=== PATIENT | female | born 1955 | race Caucasian/White ===

== ENCOUNTER 2017-02-13 00:08 | Day surgery (SDC) | payer OTHER ==
[2017-02-13] VITALS (10 sets, daily range): BP systolic 102–147; BP diastolic 55–90; PULSE 67–80; RESP 11–24; O2SAT 97–100
[~2017-02-13] VITALS: Ht 160 cm; Wt 119.0 kg
[~2017-02-13 00:08] MED LIST: CALC-714 PO; CHOL500011 PO; FIBE1TAB4 PO; LACT1CAP75 PO; LISI-571 PO; SELE200T11 PO; THYR15TA PO; TORS5TAB5 PO; [UNRECOGNIZED DRUG - CODE] MC
[2017-02-13] MEDS ORDERED: 0.9% Sodium Chloride 1,000 ML IV SCH (08:50)
[2017-02-13] MEDS ORDERED: Sodium Chloride LOK Flush 10 mL Syringe IVFLUSH PRN (08:55)
[2017-02-13 10:13] LABS: BASOPHILS % (AUTO) 0.8 % (0-3); MONOCYTES % (AUTO) 6.7 % (4-12); Mean Corpuscular Hemoglobin 31.1 pg (27.0-35.0); Mean Corpuscular Volume 90.3 fL (81-100); NEUTROPHILS % (AUTO) 57.2 % (40-74); Platelet Count 290 bil/L (150-400)
[2017-02-13] MEDS ORDERED: ASCO100089 PO (10:17)
[2017-02-13] MEDS ORDERED: 0.9% Sodium Chloride 1,000 ML IV ONE (10:20)
[2017-02-13 10:27] LABS: INR 0.94 ratio
[2017-02-13] MEDS ORDERED: Heparin 1,000 Units/500 mL NS Premix IV ONE (10:33)
[2017-02-13] MEDS ORDERED: Heparin 5,000 Units/500 mL NS Premix IV ONE (10:34)
[2017-02-13] MEDS ORDERED: fentaNYL-PF 50 mCg/mL 2 mL Inj ONE (11:41)
[2017-02-13] MEDS ORDERED: Bupivacaine-MPF 0.5% 30 mL Inj ONE (11:59)
[2017-02-13] MEDS ORDERED: Atropine 1 mg/10 mL (Code) Syringe ONE (12:06)
[2017-02-13] MEDS ORDERED: 0.9% Sodium Chloride 1,000 ML IV PRN (12:57)
[2017-02-13] MEDS ORDERED: 0.9% Sodium Chloride 250 ML IV PRN (12:57)
[2017-02-13] MEDS ORDERED: Ondansetron 2 mg/mL 2 mL Inj IVPUSH PRN (13:00)
[2017-02-13] MEDS ORDERED: HYDROcodone-APAP 5-325 mg Tablet PO PRN (13:00)
[2017-02-13] MEDS ORDERED: Atropine 1 mg/10 mL (Code) Syringe IVPUSH PRN (13:00)
--- NOTE | 2017-02-13 15:40 | NUR ---
Discharge instructions reviewed with patient and spouse.Right groin stable after ambulating to bathroom..Pt waiting on Dr Cornell to see her so she can leave.
--- NOTE | 2017-02-13 21:18 | CS94 ---
[address] [address] DIAGNOSTIC CARDIAC CATHETERIZATION PATIENT: COLLIN MASON : 1955 MR#: [id number] ADMIT: 02/13/2017 JOB ID: [id number] SERVICE DATE: 02/13/2017 PROCEDURE: 1. Right heart catheterization. 2. Retrograde left heart catheterization. 3. Selective left and right coronary angiography. 4. Left ventricular cineangiography. 5. Right groin angiography. PREOPERATIVE EVALUATION: Severe symptomatic tricuspid regurgitation. CONSENT: The patient was explained the risks, benefits, and alternatives of the procedure. Informed signed consent was obtained and placed in the chart. PROCEDURE: The patient was brought to the cath laboratory and placed on the cath table. Both groins were prepped and draped in the usual sterile manner. Using a modified Seldinger technique, a 6-Portuguese arterial sheath was placed in the right femoral artery. A 7-Portuguese venous sheath was placed in the right femoral vein. A [place]-Ayan catheter was advanced under direct fluoroscopy into the right ventricle. Several attempts were made to advance the catheter into the pulmonary artery. However, because of the severe tricuspid regurgitation, the catheter could not be advanced further. Therefore FR4 catheter was placed in the right ventricular outflow tract. An SV-5 wire was advanced through the right catheter into the left pulmonary artery. The catheter was withdrawn and subsequently [place]-Ayan catheter was introduced over the guidewire into the left pulmonary artery. Subsequently, left pulmonary artery wedge pressures, oxygen saturation. pulmonary artery pressures, as well as oxygen saturations were obtained. Cardiac output by thermodilution method was obtained as well. Subsequently, right heart oxygen saturations and pressures were obtained and right atrial pressures as well as oxygen saturations were obtained. The hemodynamics into the IVC was obtained as well. After the completion of the right heart catheterization the catheter was withdrawn. The left heart catheterization was performed with FR4 catheter. The catheter tip was engaged into the left main coronary artery and multiple views of left coronary artery were obtained in multiple projections. FR4 catheter was used to engage the right coronary artery. Multiple views of the right coronary artery were obtained in multiple projections. A pigtail catheter was advanced over the guidewire into the left ventricle. Left ventricular hemodynamics were obtained. The left ventricular cineangiography was performed, standard right anterior oblique view with 10 cc with a total of 30 cc injected. The total fluoro time was 8.6 minutes and total contrast used 70 cc. The left side hemodynamics: The left ventricular end-diastolic pressure was 13 mmHg. The LV pressure was 145/2. The aortic pressure was measured at 145/74 with a mean of 104. CORONARY ANGIOGRAPHY: The total fluoro time was 8.6 minutes and total contrast used was 70 cc. The left main coronary artery is angiographically normal. It bifurcates into left anterior descending artery and left circumflex coronary artery. The left anterior descending artery is angiographically normal. The left circumflex coronary artery is angiographically normal. The right coronary artery is dominant and is angiographically normal. The right heart hemodynamics. The inferior vena cava hemodynamics demonstrates reversal of flow. The pressures were measured at 8 mmHg (elevated). The right atrial pressure was 16/12 with a mean of 8 mmHg. The pulmonary capillary wedge pressure was 12 mmHg with an A-wave of 16 and V-wave of 14. The PA pressure was 34/15 with a mean of 22 mmHg. The RV pressure was 27/1 with a mean of 11 mmHg. The oxygen saturation, the right atrial oxygen saturation was 71%, right ventricle 70%, and PA was 72%. The pulmonary capillary occlusive oxygen saturation was 94%. The aortic saturation was 97%. Cardiac output, thermodilution method, 6.14 L/minute with a cardiac index of 2.82. Cardiac output by Mady method 7.02 with a cardiac index of 3.22. The transpulmonary gradient was less than and pulmonary vascular resistance was less than 2 Ramírez unit. LEFT VENTRICULAR CINEANGIOGRAPHY: The left ventricular overall systolic function is normal. Mild pulmonary regurgitation was noted based on Mayer criteria. IMPRESSION: 1. Angiographically normal coronaries. 2. Normal left ventricular systolic function. 3. Right heart hemodynamics demonstrate normal pulmonary capillary wedge pressures. 4. Normal pulmonary vascular resistance. 5. Mild right ventricular systolic dysfunction with the right ventricular end-diastolic pressure of 11 mmHg. 6. The right atrial pressure to pulmonary capillary wedge pressure ratio is about 60%, indicative of right ventricular systolic dysfunction. 7. Normal left ventricular cardiac outputs. COMPLICATIONS: None. MTDD
[2017-02-17] MEDS ORDERED: CeFAZolin 2 Gm/50 mL D5W IV Premix IV ONE (06:00)
== END 2017-02-13 23:59 | disposition home or self-care (01) ==
LOC: SOUO 00:08
PROVIDERS: ATTEND Internal Medicine Cardiovascular Disease
DX: I36.1 Nonrheumatic tricuspid (valve) insufficiency (principal); I10 Essential (primary) hypertension; E03.9 Hypothyroidism, unspecified; Z86.19 Personal history of other infectious and parasitic diseases
CPT/HCPCS: 36415; 80048; 85025; 85610; 93005; 93460; 99152; 99153; C1725; C1760; C1769; J1644; J2250; J3010; J7030; Q9967